=== PATIENT | male | born 1950 | race Caucasian/White ===

== ENCOUNTER 2017-11-12 12:50 | Emergency (ER) | payer OTHER ==
[~2017-11-12] VITALS: Ht 180.3 cm; Wt 113.4 kg
[~2017-11-12 12:50] MED LIST: COLACE100 MG PO; COUMADIN 5 MG TA5 M1 PO; ELIQUIS5 MG PO; ENOXAPARIN120 MG/0.1 SUBQ; FAMOTIDINE PO; JANTOVEN10 MG; JANTOVEN7.5 MG PO; LISINOPRIL20 MG PO; LISINOPRIL5 MG PO; LOVENOX SC; MEN'S MULTI-VI1 EACH PO; Magnesium PO; OMEGA-31000 M1 PO; VITAMIN D1000 UNI1 PO; [UNRECOGNIZED DRUG - REMARK] TOP
[2017-11-12] MEDS ORDERED: HYDROCODONE-AP1 EAC6 PO (13:33)
[2017-11-12 14:45] VITALS: BP 132/70
== END 2017-11-12 14:45 | disposition home or self-care (01) ==
LOC: M.ERS 12:50
DX: M54.5 Low back pain (principal); I10 Essential (primary) hypertension; Z88.0 Allergy status to penicillin; W00.0XXA Fall on same level due to ice and snow, initial encounter; Y93.89 Activity, other specified; Y92.89 Other specified places as the place of occurrence of the external cause; Y99.0 Civilian activity done for income or pay

== ENCOUNTER → 2018-01-19 | Outpatient (CLI) | payer OTHER ==
[~2018-01-19] MED LIST changes: +HYDROCODONE-AP1 EAC6 PO
== END ==
LOC: M.MRI 13:44
DX: M47.26 Other spondylosis with radiculopathy, lumbar region (principal); M48.061 Spinal stenosis, lumbar region without neurogenic claudication

== ENCOUNTER → 2019-01-31 | Outpatient (CLI) | payer OTHER | LOC: M.RAD 11:47 | DX: J98.4 Other disorders of lung (principal) ==

== ENCOUNTER → 2019-12-19 | Outpatient (CLI) | payer OTHER | LOC: M.RAD 11:16 | DX: J98.4 Other disorders of lung (principal) ==